=== PATIENT | female | born 1940 | race Caucasian/White ===

== ENCOUNTER 2020-12-30 11:03 | Emergency (ER) | payer MEDICARE ==
[2020-12-30 12:16] LABS: HEMOGLOBIN 11.5 gm/dl (12.3-15.3); RED BLOOD COUNT 3.83 M/UL (4.00-5.10); WHITE BLOOD COUNT 7.3 K/UL (4.5-11.0)
== END 2020-12-30 15:30 | disposition home or self-care (01) ==
LOC: ER1 11:03
PROVIDERS: Physician Assistant Medical
DX: M25.561 Pain in right knee (principal); M79.661 Pain in right lower leg; M79.651 Pain in right thigh; E11.9 Type 2 diabetes mellitus without complications; I10 Essential (primary) hypertension; E78.5 Hyperlipidemia, unspecified; E03.9 Hypothyroidism, unspecified; Z79.4 Long term (current) use of insulin; Z90.710 Acquired absence of both cervix and uterus; Z88.0 Allergy status to penicillin
CPT/HCPCS: 73552; 73590; 80053; 85025; 85610; 93971; 99284

== ENCOUNTER 2021-01-02 18:28 | Emergency (ER) | payer MEDICARE ==
[2021-01-02] MEDS ORDERED: CEPHALEXIN500 M1 PO (21:24)
== END 2021-01-02 22:45 ==
LOC: ER1 18:28
DX: L76.82 Other postprocedural complications of skin and subcutaneous tissue (principal); S71.011D Laceration without foreign body, right hip, subsequent encounter; E11.9 Type 2 diabetes mellitus without complications; I10 Essential (primary) hypertension; W26.8XXD Contact with other sharp object(s), not elsewhere classified, subsequent encounter
CPT/HCPCS: 73522; 99283